=== PATIENT | female | born 1990 | race Caucasian/White ===

== ENCOUNTER 2018-10-10 08:00 | Outpatient (CLI) | payer MEDICAID, OTHER ==
[2018-10-10 18:47] LABS: BASOPHILS % (AUTO) 0.4 %; EOSINOPHILS # (AUTO) 0.1 10^3/uL (0.0-0.7); EOSINOPHILS % (AUTO) 2.4 %; HGB - HEMOGLOBIN 13.4 g/dL (12.0-16.0); LYMPHOCYTES # (AUTO) 1.2 10^3/uL (1.5-3.5); LYMPHOCYTES % (AUTO) 28.4 %; MEAN CORPUSCULAR HEMOGLOBIN 28.2 pg (27.0-31.0); MEAN CORPUSCULAR HGB CONC 33.3 g/dL (32.0-36.0); MEAN CORPUSCULAR VOLUME 84.6 fL (81.0-99.0); MEAN PLATELET VOLUME 9.8 fL (7.9-10.8); MONOCYTES # (AUTO) 0.3 10^3/uL (0.0-1.0); MONOCYTES % (AUTO) 6.8 %; NEUTROPHILS # (AUTO) 2.6 10^3/uL (1.5-6.6); PLT - PLATELET COUNT 240 10^3/uL (130-450); RED BLOOD COUNT 4.76 10^6/uL (4.20-5.40); RED CELL DISTRIBUTION WIDTH 13.2 % (12.0-15.0); WHITE BLOOD COUNT 4.2 x10^3/uL (4.8-10.8)
[2018-10-10 19:21] LABS: ALBUMIN/GLOBULIN RATIO 1.4 (1.0-2.2); BILIRUBIN,TOTAL 0.8 mg/dL (0.2-1.0); CALCIUM 9.4 mg/dL (8.5-10.3); CREATININE 0.6 mg/dL (0.4-1.0); TOTAL PROTEIN 6.9 g/dL (6.7-8.2)
[2018-10-10 19:25] LABS: CREATININE,URINE 80.7 mg/dL
[2018-10-10 19:28] LABS: THYROID STIMULATING HORMONE 1.75 uIU/mL (0.34-5.60)
[2018-10-10 19:39] LABS: FOLATE 5.65 ng/mL (5.90 - >24.8)
[2018-10-10 19:43] LABS: MICROALBUMIN,URINE < 0.3 mg/dL (0-300.0)
== END 2018-10-10 23:59 | disposition home or self-care (01) ==
LOC: LAB.N 08:00
PROVIDERS: ATTEND Internal Medicine Endocrinology, Diabetes & Metabolism
DX: E10.9 Type 1 diabetes mellitus without complications (principal); R03.0 Elevated blood-pressure reading, without diagnosis of hypertension; E55.9 Vitamin D deficiency, unspecified; R53.83 Other fatigue
CPT/HCPCS: 36415; 80053; 82043; 82306; 82570; 82607; 82746; 84443; 85025

== ENCOUNTER 2018-12-29 08:00 | Outpatient (CLI) | payer MEDICAID | END 2018-12-29 23:59 | disposition home or self-care (01) | LOC: LAB.N 08:00 | PROVIDERS: ATTEND Nurse Practitioner Gerontology | DX: O92.70 Unspecified disorders of lactation (principal) | CPT/HCPCS: 36415; 84146 ==

== ENCOUNTER 2019-08-17 13:37 | Outpatient (CLI) | payer MEDICAID ==
[2019-08-17 19:43] LABS: HCG,QUALITATIVE BLOOD NEGATIVE
== END 2019-08-17 23:59 | disposition home or self-care (01) ==
LOC: LAB.N 13:37
PROVIDERS: ATTEND Nurse Practitioner Gerontology
DX: N91.2 Amenorrhea, unspecified (principal)
CPT/HCPCS: 36415; 84703

== ENCOUNTER 2020-01-09 02:54 | Outpatient (CLI) | payer MEDICAID | END 2020-01-09 02:55 | disposition critical access hospital (66) | LOC: EMS 02:54 | PROVIDERS: ATTEND Surgery | DX: R56.9 Unspecified convulsions (principal); R73.09 Other abnormal glucose | CPT/HCPCS: A0425; A0427; A0999 ==

== ENCOUNTER 2020-01-09 03:11 | Emergency (ER) | payer MEDICAID ==
--- NOTE | 2020-01-09 03:04 | ED Physician Documentation ---
PD HPI SEIZURE - Stated complaint Stated Complaint: SIEZURE - History obtained from History obtained from: Patient (Patient is a 29-year-old female brought in by EMS after she was using marijuana tonight and then became irritable and started shaking her friends called 911. She is a type I diabetic her blood sugar was 220 on arrival. Remainder of history is unknown as the patient is not answering questions.) Review of Systems Unable to obtain: AMS PD PAST MEDICAL HISTORY - Present Medications Home Medications: Ambulatory Orders Medication Instructions Recorded Confirmed Multivitamin [Multivitamins] 1 cap DAILY 05/11/13 05/11/13 Insulin Lispro [Humalog] 10/30/15 - Allergies Allergies/Adverse Reactions: Allergies Allergy/AdvReac Type Severity Reaction Status Date / Time No Known Drug Allergies Allergy Verified 01/09/20 03:19 PD ED PE NORMAL - Vitals Vital signs reviewed: Yes - General General: No acute distress, Well developed/nourished, Other (patient shaking diffusely.) - HEENT HEENT: Atraumatic, PERRL, EOMI, Ears normal, Moist mucous membranes - Neck Neck: Supple, no meningeal sign, No JVD - Cardiac Cardiac: RRR, No murmur, Strong equal pulses - Respiratory Respiratory: No respiratory distress, Clear bilaterally - Abdomen Abdomen: Normal bowel sounds, Soft, Non tender, Non distended, No organomegaly - Back Back: No CVA TTP, No spinal TTP - Derm Derm: Normal color, Warm and dry, No rash - Extremities Extremities: No deformity, No tenderness to palpate, Normal ROM s pain, No edema - Neuro Neuro: No motor deficit, No sensory deficit - Psych Psych: Other (shaking at times, sleeping at other times, not answering questions.) Results - Vitals Vitals: Vital Signs - 24 hr 01/09/20 01/09/20 01/09/20 03:19 03:24 04:11 Temperature 36.8 C Heart Rate 133 H 133 H 128 H Respiratory 22 20 14 Rate Blood Pressure 162/109 H 161/109 H 158/67 H O2 Saturation 100 100 100 01/09/20 05:50 Temperature Heart Rate 101 H Respiratory 18 Rate Blood Pressure 131/78 H O2 Saturation 98 Oxygen O2 Source Room air - Labs Labs: Laboratory Tests 01/09/20 01/09/20 01/09/20 05:00 05:00 05:00 WBC 9.5 RBC 4.34 Hgb 13.0 Hct 37.8 MCV 87.1 MCH 30.0 MCHC 34.4 RDW 12.1 Plt Count 276 MPV 11.0 H Neut # (Auto) 8.2 H Lymph # (Auto) 0.8 L [place] # (Auto) 0.4 Eos # (Auto) 0.0 Baso # (Auto) 0.0 Absolute Nucleated RBC 0.00 Nucleated RBC % 0.0 Sodium 134 L Potassium 4.2 Chloride 98 L Carbon Dioxide 27 Anion Gap 9.0 BUN 9 Creatinine 0.7 Estimated GFR (MDRD) 100 Glucose 313 H Calcium 8.7 Total Bilirubin 0.4 AST 21 ALT 14 Alkaline Phosphatase 65 Total Creatine Kinase 42 Total Protein 6.8 Albumin 4.0 Globulin 2.8 Albumin/Globulin Ratio 1.4 Lipase 28 TSH 0.45 Urine Color Urine Clarity Urine pH Ur Specific [place] Urine Protein Urine Glucose (UA) Urine Ketones Urine Occult Blood Urine Nitrite Urine Bilirubin Urine Urobilinogen Ur Leukocyte Esterase Ur Microscopic Review Urine Culture Comments Urine HCG, Qual Salicylates < 6.0 Urine Opiates Screen Ur Oxycodone Screen Urine Methadone Screen Ur Propoxyphene Screen Acetaminophen < 10 L Ur Barbiturates Screen Ur Tricyclics Screen Ur Phencyclidine Scrn Ur Amphetamine Screen U Methamphetamines Scrn U Benzodiazepines Scrn Urine Cocaine Screen U Cannabinoids Screen Ethyl Alcohol < 5.0 01/09/20 05:44 WBC RBC Hgb Hct MCV MCH MCHC RDW Plt Count MPV Neut # (Auto) Lymph # (Auto) [place] # (Auto) Eos # (Auto) Baso # (Auto) Absolute Nucleated RBC Nucleated RBC % Sodium Potassium Chloride Carbon Dioxide Anion Gap BUN Creatinine Estimated GFR (MDRD) Glucose Calcium Total Bilirubin AST ALT Alkaline Phosphatase Total Creatine Kinase Total Protein Albumin Globulin Albumin/Globulin Ratio Lipase TSH Urine Color YELLOW Urine Clarity CLEAR Urine pH 6.5 Ur Specific [place] 1.010 Urine Protein NEGATIVE Urine Glucose (UA) >=1000 H Urine Ketones NEGATIVE Urine Occult Blood NEGATIVE Urine Nitrite NEGATIVE Urine Bilirubin NEGATIVE Urine Urobilinogen 0.2 (NORMAL) Ur Leukocyte Esterase NEGATIVE Ur Microscopic Review NOT INDICATED Urine Culture Comments NOT INDICATED Urine HCG, Qual NEGATIVE Salicylates Urine Opiates Screen NEGATIVE Ur Oxycodone Screen NEGATIVE Urine Methadone Screen NEGATIVE Ur Propoxyphene Screen NEGATIVE Acetaminophen Ur Barbiturates Screen NEGATIVE Ur Tricyclics Screen NEGATIVE Ur Phencyclidine Scrn NEGATIVE Ur Amphetamine Screen NEGATIVE U Methamphetamines Scrn NEGATIVE U Benzodiazepines Scrn NEGATIVE Urine Cocaine Screen NEGATIVE U Cannabinoids Screen POSITIVE H Ethyl Alcohol PD MEDICAL DECISION MAKING - ED course Complexity details: reviewed results, re-evaluated patient (06:15 awake, alert oriented, denies hi/si. asymptomatic, hr in the 90s. will dc home at this time.), considered differential (marijuana abuse), d/w patient, d/w family Departure - Departure Disposition: 01 Home, Self Care Clinical Impression: Marijuana abuse Condition: Stable Instructions: ED Marijuana Abuse Follow-Up: your, doctor [Other] - Tomorrow Comments: avoid marijuana use.
[2020-01-09] MEDS ORDERED: LORazepam 2 MG/ML VIAL IVP STA (03:28)
[2020-01-09] MEDS ORDERED: SODIUM CHLORIDE 0.9% 1,000 ML IV STA (03:31)
[2020-01-09 05:22] LABS: BASOPHILS % (AUTO) 0.4 %; EOSINOPHILS % (AUTO) 0.1 %; LYMPHOCYTES # (AUTO) 0.8 10^3/uL (1.5-3.5); MEAN CORPUSCULAR HGB CONC 34.4 g/dL (32.0-36.0); MEAN CORPUSCULAR VOLUME 87.1 fL (81.0-99.0); MONOCYTES # (AUTO) 0.4 10^3/uL (0.0-1.0); MONOCYTES % (AUTO) 4.6 %; NEUTROPHILS # (AUTO) 8.2 10^3/uL (1.5-6.6); NEUTROPHILS % (AUTO) 86.5 %; PLT - PLATELET COUNT 276 10^3/uL (130-450); RED BLOOD COUNT 4.34 10^6/uL (4.20-5.40); RED CELL DISTRIBUTION WIDTH 12.1 % (12.0-15.0); WHITE BLOOD COUNT 9.5 x10^3/uL (4.8-10.8)
[2020-01-09 05:32] LABS: ACETAMINOPHEN < 10 ug/mL (10-30); ALBUMIN/GLOBULIN RATIO 1.4 (1.0-2.2); ALKALINE PHOSPHATASE 65 IU/L (42-121); ALT ALANINE AMINOTRANSFERASE 14 IU/L (10-60); AST ASPARTATE AMINOTRANSFERASE 21 IU/L (10-42); BILIRUBIN,TOTAL 0.4 mg/dL (0.2-1.0); BUN - BLOOD UREA NITROGEN 9 mg/dL (6-20); CALCIUM 8.7 mg/dL (8.5-10.3); CARBON DIOXIDE - CO2 27 mmol/L (21-32); CHLORIDE 98 mmol/L (101-111); CK- CREATINE KINASE 42 IU/L (22-269); CREATININE 0.7 mg/dL (0.4-1.0); GLUCOSE 313 mg/dL (70-100); LIPASE 28 U/L (22-51); SALICYLATE < 6.0 mg/dL; SODIUM 134 mmol/L (135-145); TOTAL PROTEIN 6.8 g/dL (6.7-8.2)
[2020-01-09 05:52] VITALS: BP 131/78
[2020-01-09 06:00] LABS: MUDS CUTOFF CONCENTRATIONS CUTOFF CONC BELOW:
[2020-01-09 06:01] LABS: BILIRUBIN,URINE NEGATIVE (NEGATIVE); GLUCOSE, URINE (UA) >=1000 mg/dL (NEGATIVE); KETONES,URINE (UA) NEGATIVE (NEGATIVE); LEUKOCYTE ESTERASE, URINE NEGATIVE (NEGATIVE); NITRITE,URINE NEGATIVE (NEGATIVE); OCCULT BLOOD,URINE NEGATIVE (NEGATIVE); PH,URINE 6.5 PH (5.0-7.5); PROTEIN,URINE NEGATIVE (NEGATIVE); UROBILINOGEN,URINE 0.2 (NORMAL) E.U./dL (NORMAL)
[2020-01-09 06:05] LABS: CLARITY,URINE CLEAR (CLEAR); HCG UR QUAL NEGATIVE
[2020-01-09 06:11] LABS: AMPHETAMINE SCREEN,URINE NEGATIVE (NEGATIVE); BENZODIAZEPINES SCREEN, URINE NEGATIVE (NEGATIVE); COCAINE SCREEN URINE NEGATIVE (NEGATIVE); METHADONE SCREEN, URINE NEGATIVE (NEGATIVE); METHAMPHETAMINES SCREEN, URINE NEGATIVE (NEGATIVE); OPIATE SCREEN, URINE NEGATIVE (NEGATIVE); OXYCODONE SCREEN, URINE NEGATIVE (NEGATIVE); PROPOXYPHENE SCREEN, URINE NEGATIVE (NEGATIVE); TRICYCLIC ANTIDEPRESSANT,URINE NEGATIVE (NEGATIVE)
== END 2020-01-09 06:20 | disposition home or self-care (01) ==
LOC: EDUNIT# → ED 03:11
DX: F12.10 Cannabis abuse, uncomplicated (principal); E10.9 Type 1 diabetes mellitus without complications; Z79.4 Long term (current) use of insulin
CPT/HCPCS: 36415; 80053; 80306; 80307; 80320; 80329; 81003; 81025; 82550; 83690; 84443; 85025; 96361; 96374; 99281; 99283; J2060; 81001; 87086

== ENCOUNTER 2020-01-21 14:46 | Outpatient (CLI) | payer MEDICAID ==
[2020-01-21 18:29] LABS: CALCIUM 9.4 mg/dL (8.5-10.3); CREATININE 0.6 mg/dL (0.4-1.0)
[2020-01-21 18:52] LABS: HB2 TOTAL 14.1 g/dL; HEMOGLOBIN A1C 0.72 g/dL; HEMOGLOBIN A1C % 6.8 % (4.6-6.2)
[2020-01-21 19:02] LABS: MICROALBUMIN,URINE < 0.2 mg/dL (0-300.0)
== END 2020-01-21 23:59 | disposition home or self-care (01) ==
LOC: LAB.WCP 14:46
PROVIDERS: ATTEND Family Medicine
DX: E10.9 Type 1 diabetes mellitus without complications (principal)
CPT/HCPCS: 36415; 80048; 80053; 82043; 82570; 83036

== ENCOUNTER 2020-01-27 19:16 | Emergency (ER) | payer MEDICAID ==
--- NOTE | 2020-01-27 20:06 | ED Physician Documentation ---
PD HPI CHEST PAIN - Stated complaint Stated Complaint: CP/SOA - Chief complaint Chief Complaint: Cardiac - History obtained from History obtained from: Patient - History of Present Illness Timing - duration: Other (unable to describe the episodes in terms of duration) Timing - details: Abrupt onset, Intermittant Quality: Pain Location: Substernal Radiation: Other (does not radiate) Improved by: Nothing Worsened by: Other (no apparent inciting nor exacerbating factors) Associated symptoms: Shortness of air, Feeling faint / dizzy, Palpitations. No: Diaphoresis, Nausea, Vomiting, General Weakness Recently seen: Not recently seen - Additional information Additional information: c/o episodic palpitations (rapid and irregular) since this morning. these episo ton are associated with chest pain, dizziness, and shortness of breath. She is asymptomatic between episodes. The episodes have been becoming more frequent and prolonged during the day and evening. Review of Systems Constitutional: reports: Reviewed and negative Cardiac: reports: Chest pain / pressure, Palpitations. denies: Pedal edema, Calf pain Respiratory: reports: Dyspnea. denies: Cough GI: reports: Reviewed and negative : denies: Now EGA Musculoskeletal: denies: Extremity swelling PD PAST MEDICAL HISTORY - Past Medical History Past Medical History: Yes Endocrine/Autoimmune: Type 1 diabetes Psych: Depression, Anxiety Other Past Medical History: Dissociative Disorder - Past Surgical History Past Surgical History: No - Present Medications Home Medications: Ambulatory Orders Medication Instructions Recorded Confirmed Multivitamin [Multivitamins] 1 cap DAILY 05/11/13 05/11/13 Insulin Lispro [Humalog] SQ 10/30/15 ALPRAZolam [Alprazolam] 0.5 mg PO BID PRN #20 tablet 01/27/20 Escitalopram Oxalate [Lexapro] 20 mg PO DAILY 01/27/20 01/27/20 Insulin Glargine [Lantus Solostar] 18 units SQ QPM 01/27/20 01/27/20 Prazosin HCl 1 mg PO QPM 01/27/20 01/27/20 Trazodone HCl 50 mg PO QPM 01/27/20 01/27/20 - Allergies Allergies/Adverse Reactions: Allergies Allergy/AdvReac Type Severity Reaction Status Date / Time No Known Drug Allergies Allergy Verified 01/27/20 19:49 - Social History Does the pt smoke?: No Smoking Status: Never smoker Does the pt drink ETOH?: No Does the pt have substance abuse?: Yes - Immunizations Immunizations are current?: Yes - POLST Patient has POLST: No PD ED PE NORMAL - Vitals Vital signs reviewed: Yes - General General: Alert and oriented X 3, No acute distress, Well developed/nourished - Cardiac Cardiac: RRR, No murmur, No gallop, No rub - Respiratory Respiratory: No respiratory distress, Clear bilaterally - Abdomen Abdomen: Soft, Non tender - Derm Derm: Normal color, Warm and dry - Extremities Extremities: No edema Results - Vitals Vitals: Vital Signs - 24 hr 01/27/20 01/27/20 01/27/20 19:20 19:56 21:05 Temperature 36.7 C Heart Rate 102 H 84 81 Respiratory 26 H 16 15 Rate Blood Pressure 146/84 H 131/78 H 131/73 H O2 Saturation 100 100 97 01/27/20 01/27/20 22:18 23:00 Temperature 37.0 C Heart Rate 81 78 Respiratory 15 14 Rate Blood Pressure 140/77 H 146/85 H O2 Saturation 99 98 Oxygen O2 Source Room air - EKG (time done) No standard instances Rate: Rate (enter#) (79) Rhythm: NSR [place]: Normal Intervals: Normal [place] QRS: Normal Ischemia: Normal ST segments - Labs Labs: Laboratory Tests 01/27/20 01/27/20 01/27/20 19:35 20:59 20:59 WBC 6.6 RBC 4.88 Hgb 14.4 Hct 43.7 MCV 89.5 MCH 29.5 MCHC 33.0 RDW 12.6 Plt Count 255 MPV 12.2 H Neut # (Auto) 3.9 Lymph # (Auto) 2.1 [place] # (Auto) 0.4 Eos # (Auto) 0.1 Baso # (Auto) 0.0 Absolute Nucleated RBC 0.00 Nucleated RBC % 0.0 D-Dimer < 200.0 L Sodium 138 Potassium 3.6 Chloride 100 L Carbon Dioxide 27 Anion Gap 11.0 BUN 10 Creatinine 1.0 Estimated GFR (MDRD) 67 L Glucose 282 H Calcium 9.0 - Rads (name of study) chest xray Radiology: Prelim report reviewed, See rad report PD MEDICAL DECISION MAKING - ED course Complexity details: reviewed results, re-evaluated patient, considered differential, d/w patient Departure - Departure Disposition: Home, Self Care Clinical Impression: Palpitations Condition: Good Instructions: ED Chest Pain Atypical Unkn Cause, ED Palpitations Prescriptions: ALPRAZolam [Alprazolam] 0.5 mg PO BID PRN #20 tablet PRN Reason: Anxiety Discharge Date/Time: 01/27/20 23:05
[2020-01-27 20:52] LABS: BASOPHILS % (AUTO) 0.6 %; EOSINOPHILS # (AUTO) 0.1 10^3/uL (0.0-0.7); EOSINOPHILS % (AUTO) 1.7 %; HGB - HEMOGLOBIN 14.4 g/dL (12.0-16.0); LYMPHOCYTES # (AUTO) 2.1 10^3/uL (1.5-3.5); LYMPHOCYTES % (AUTO) 31.3 %; MEAN CORPUSCULAR HEMOGLOBIN 29.5 pg (27.0-31.0); MEAN CORPUSCULAR VOLUME 89.5 fL (81.0-99.0); MEAN PLATELET VOLUME 12.2 fL (7.9-10.8); MONOCYTES # (AUTO) 0.4 10^3/uL (0.0-1.0); MONOCYTES % (AUTO) 6.5 %; NEUTROPHILS # (AUTO) 3.9 10^3/uL (1.5-6.6); NEUTROPHILS % (AUTO) 59.4 %; PLT - PLATELET COUNT 255 10^3/uL (130-450); RED BLOOD COUNT 4.88 10^6/uL (4.20-5.40); RED CELL DISTRIBUTION WIDTH 12.6 % (12.0-15.0); WHITE BLOOD COUNT 6.6 x10^3/uL (4.8-10.8)
--- NOTE | 2020-01-27 21:07 | XRAY Report ---
PROCEDURE: Chest 2 View X-Ray INDICATIONS: chest pain, dyspnea TECHNIQUE: 2 view(s) of the chest. COMPARISON: None. FINDINGS: Surgical changes and devices: None. Lungs and pleura: No pleural effusions or pneumothorax. Lungs are clear. Mediastinum: Mediastinal contours are normal. Heart size is normal. Bones and chest wall: No suspicious bony abnormalities. Soft tissues appear unremarkable. IMPRESSION: No acute cardiopulmonary disease. Reviewed by: Dai Pepe MD on 01/27/2020 9:06 PM PDT Approved by: Dai Pepe MD on 01/27/2020 9:06 PM PDT Station ID: [id number]
[2020-01-27 23:05] VITALS: BP 146/85
== END 2020-01-27 23:05 | disposition home or self-care (01) ==
LOC: ED 19:16
DX: R00.2 Palpitations (principal); R06.00 Dyspnea, unspecified; E10.9 Type 1 diabetes mellitus without complications; Z79.4 Long term (current) use of insulin
CPT/HCPCS: 36415; 71046; 80048; 85025; 85379; 93005; 99284

== ENCOUNTER 2021-03-01 12:18 | Outpatient (CLI) | payer MEDICAID ==
[2021-03-01 12:52] LABS: MUDS CUTOFF CONCENTRATIONS CUTOFF CONC BELOW:
[2021-03-01 13:04] LABS: AMPHETAMINE SCREEN,URINE NEGATIVE (NEGATIVE); BARBITURATE SCREEN,UR NEGATIVE (NEGATIVE); BENZODIAZEPINES SCREEN, URINE POSITIVE (NEGATIVE); COCAINE SCREEN URINE NEGATIVE (NEGATIVE); METHADONE SCREEN, URINE NEGATIVE (NEGATIVE); METHAMPHETAMINES SCREEN, URINE NEGATIVE (NEGATIVE); OPIATE SCREEN, URINE NEGATIVE (NEGATIVE); OXYCODONE SCREEN, URINE NEGATIVE (NEGATIVE); PROPOXYPHENE SCREEN, URINE NEGATIVE (NEGATIVE); THC CANNABINOID SCREEN, URINE NEGATIVE (NEGATIVE); TRICYCLIC ANTIDEPRESSANT,URINE NEGATIVE (NEGATIVE)
== END 2021-03-01 12:19 | disposition home or self-care (01) ==
LOC: RT 12:18
PROVIDERS: ATTEND Psychiatry & Neurology Psychiatry
DX: Z79.899 Other long term (current) drug therapy (principal)
CPT/HCPCS: 80306; 93005

== ENCOUNTER 2021-04-23 08:00 | Outpatient (CLI) | payer MEDICAID ==
[2021-04-23 21:16] LABS: BACTERIAL VAGINOSIS DNA NEGATIVE (NEGATIVE); CANDIDA GLABRATA DNA NEGATIVE (NEGATIVE); CANDIDA GROUP DNA POSITIVE (NEGATIVE); CANDIDA KRUSEI DNA NEGATIVE (NEGATIVE); TRICHOMONAS VAGINALIS DNA NEGATIVE (NEGATIVE)
[2021-04-23 22:02] LABS: CHLAMYDIA TRACHOMATIS DNA NEGATIVE (NEGATIVE); NEISSERIA GONORRHOEAE DNA NEGATIVE (NEGATIVE); TRICHOMONAS VAGINALIS DNA NEGATIVE (NEGATIVE)
== END 2021-04-23 23:59 | disposition home or self-care (01) ==
LOC: LAB 08:00
PROVIDERS: ATTEND Family Medicine
DX: R30.0 Dysuria (principal)
CPT/HCPCS: 87086; 87181; 87491; 87591; 87661; 87801

== ENCOUNTER 2021-05-04 13:45 | Outpatient (CLI) | payer MEDICAID | END 2021-05-04 23:59 | disposition home or self-care (01) | LOC: LAB.N 13:45 | PROVIDERS: ATTEND Family Medicine | DX: R10.9 Unspecified abdominal pain (principal) | CPT/HCPCS: 87077; 87086; 87181 ==

== ENCOUNTER 2021-05-04 15:23 | Emergency (ER) | payer MEDICAID ==
[2021-05-04 15:33] VITALS: BP 143/86
--- NOTE | 2021-05-04 15:45 | ED Physician Documentation ---
PD HPI ABD PAIN - Stated complaint Stated Complaint: BACK/ABD PX; NAUSEA - Chief complaint Chief Complaint: Abd Pain - History obtained from History obtained from: Patient - History of Present Illness Timing - onset: Yesterday Timing - duration: Days (2) Timing - details: Gradual onset, Still present Quality: Pain. No: Cramping, Aching Location: RLQ, Suprapubic Radiation: Right flank Associated symptoms: Nausea, Dysuria, Hematuria. No: Fever, Vomiting Similar symptoms before: Diagnosis Recently seen: Clinic (seen at walk in last week with same and Rx with Macrobid. Symptoms improved but back now off abx for several days.) Review of Systems Constitutional: denies: Fever, Chills Nose: denies: Rhinorrhea / runny nose, Congestion Throat: denies: Sore throat Respiratory: denies: Cough GI: denies: Abdominal Pain, Nausea, Vomiting, Diarrhea : reports: Dysuria, Frequency. denies: Discharge, Irregular menses Skin: denies: Rash PD PAST MEDICAL HISTORY - Past Medical History Endocrine/Autoimmune: Type 1 diabetes Psych: Depression, Anxiety - Past Surgical History Past Surgical History: No - Present Medications Home Medications: Ambulatory Orders Medication Instructions Recorded Confirmed Multivitamin [Multivitamins] 1 cap DAILY 05/11/13 05/11/13 Insulin Lispro [Humalog] SQ 10/30/15 ALPRAZolam [Alprazolam] 0.5 mg PO BID PRN #20 tablet 01/27/20 Insulin Glargine [Lantus Solostar] 18 units SQ QPM 01/27/20 01/27/20 Trazodone HCl 25 mg PO QPM 01/27/20 01/27/20 DULoxetine [Cymbalta] 20 mg BID 05/04/21 05/04/21 Dextroamphetamine/Amphetamine 10 mg DAILY 05/04/21 05/04/21 [Dextroamp-Amphetamine 5 mg Tab] Fluconazole [Diflucan] 150 mg PO Q3D #2 tablet 05/04/21 Ibuprofen [Motrin] 600 mg PO TID PRN #20 tab 05/04/21 cephALEXin [Keflex] 500 mg PO TID 7 Days #20 cap 05/04/21 - Allergies Allergies/Adverse Reactions: Allergies Allergy/AdvReac Type Severity Reaction Status Date / Time No Known Drug Allergies Allergy Verified 05/04/21 15:34 - Social History Does the pt smoke?: No Smoking Status: Never smoker Does the pt drink ETOH?: No Does the pt have substance abuse?: Yes - Immunizations Immunizations are current?: Yes - POLST Patient has POLST: No PD ED PE NORMAL - Vitals Vital signs reviewed: Yes - General General: Alert and oriented X 3, No acute distress, Well developed/nourished - Cardiac Cardiac: RRR, No murmur - Respiratory Respiratory: Clear bilaterally - Abdomen Abdomen: Normal bowel sounds, Soft, Non tender, Non distended - Female Female : Deferred - Back Back: Other (some right CVA tender. ) - Derm Derm: Normal color - Neuro Neuro: Alert and oriented X 3, No motor deficit, Normal speech Results - Vitals Vitals: Oxygen O2 Source Room air - Labs Labs: Microbiology 05/04/21 15:35 Urine Culture - Preliminary Urine,Random Escherichia Coli Laboratory Tests 05/04/21 15:35 Urine Color YELLOW Urine Clarity CLEAR Urine pH 7.0 Ur Specific [place] 1.010 Urine Protein TRACE Urine Glucose (UA) NEGATIVE Urine Ketones NEGATIVE Urine Occult Blood SMALL H Urine Nitrite NEGATIVE Urine Bilirubin NEGATIVE Urine Urobilinogen 0.2 (NORMAL) Ur Leukocyte Esterase TRACE H Urine RBC 0-5 Urine WBC >25 H Ur Squamous Epith Cells FEW Squamous Urine Bacteria Few Ur Microscopic Review INDICATED Urine Culture Comments INDICATED Urine HCG, Qual NEGATIVE - Rads (name of study) KUB CT Radiology: Prelim report reviewed (no kidney stones nor hydronephrosis. Aappendix not seen but no secondary signs of local inflammation.), See rad report PD MEDICAL DECISION MAKING - ED course Complexity details: reviewed results (symptoms suggestive of uTI and UA goes along with that. ), considered differential (seems recurring UTI after macrobid failure. right abd/flank pain so consider stone instead. Can get CT to eval for that as well as appendix 9lower clinical suspicion by exam). ), d/w patient Departure - Departure Disposition: 01 Home, Self Care Clinical Impression: Dysuria UTI (urinary tract infection) Qualifiers: Urinary tract infection type: acute cystitis Hematuria presence: with hematuria Qualified Code(s): N30.01 - Acute cystitis with hematuria Condition: Stable Record reviewed to determine appropriate education?: Yes Instructions: ED UTI Cystitis Female Follow-Up: Luisana Valverde PA-C [Primary Care Provider] - Prescriptions: Fluconazole [Diflucan] 150 mg PO Q3D #2 tablet cephALEXin [Keflex] 500 mg PO TID 7 Days #20 cap Ibuprofen [Motrin] 600 mg PO TID PRN #20 tab PRN Reason: Pain Comments: Stay well-hydrated. Your CT does not show any signs of stones or other acute abnormalities. Incidentally there was of small 1.3 cm left ovarian cyst which is very common incidental finding and should not be contributing to your current symptoms. You do have signs of a bladder infection still. We will try a different antibiotic with cephalexin as prescribed. I would also suggest using an anti- inflammatory ibuprofen over the next 5 days as well to help with symptoms. Recheck if not improved well over the next few days and return if worse. I transmitted your prescriptions to [facility]. Discharge Date/Time: 05/04/21 17:27
[2021-05-04 15:53] LABS: BILIRUBIN,URINE NEGATIVE (NEGATIVE); GLUCOSE, URINE (UA) NEGATIVE (NEGATIVE); KETONES,URINE (UA) NEGATIVE (NEGATIVE); LEUKOCYTE ESTERASE, URINE TRACE (NEGATIVE); NITRITE,URINE NEGATIVE (NEGATIVE); OCCULT BLOOD,URINE SMALL (NEGATIVE); PROTEIN,URINE TRACE mg/dL (NEGATIVE); UROBILINOGEN,URINE 0.2 (NORMAL) E.U./dL (NORMAL)
[2021-05-04 15:58] LABS: CLARITY,URINE CLEAR (CLEAR); HCG UR QUAL NEGATIVE
[2021-05-04 16:23] LABS: RBC,URINE 0-5 /HPF (0-5); WBC,URINE >25 /HPF (0-5)
[2021-05-04 16:24] LABS: BACTERIA,URINE Few /HPF (None Seen); SQUAMOUS EPITHELIAL CELL,UR FEW Squamous (<= Few)
--- NOTE | 2021-05-04 16:54 | CT Report ---
PROCEDURE: Abdomen/Pelvis WO INDICATIONS: right abd/flank pain TECHNIQUE: Noncontrast 5 mm thick sections acquired from the diaphragms to the symphysis. 5 mm coronal and sagi ttal reformats were then performed. For radiation dose reduction, the following was used: automated exposure control, adjustment of mA and/or kV according to patient size. COMPARISON: None. FINDINGS: Image quality: Excellent. ABDOMEN: Lung bases: Lung bases are clear. Heart size is normal. Solid organs: Liver is mildly enlarged with steatosis. The spleen is normal in size. Gallbladder is contracted, grossly normal. Pancreas is normal in contours. No adrenal nodules. Kidneys are pako l in size, without hydronephrosis or nephrolithiasis. Peritoneum and bowel: Unenhanced bowel loops demonstrate normal wall thickness and caliber. No free fluid or air. Scattered stool is present without obstruction. The appendix is not definitively iden tified. No right lower quadrant toward change. Nodes and vessels: No retroperitoneal or mesenteric adenopathy by size criteria. Aorta and inferior vena cava are normal in caliber. Miscellaneous: No ventral hernias. PELVIS: Genitourinary: Bladder wall thickness is normal. Miscellaneous: No inguinal hernias or adenopathy. Bones: No suspicious bony lesions. No vertebral body compression fractures. IMPRESSION: 1. Appendix is not visualized. However right lower quadrant is within normal limits. 2. 1.3 cm left ovarian cyst. 3. Mild constipation. Reviewed by: Ghazal Proctor MD on 05/04/2021 4:53 PM PDT Approved by: Ghazal Proctor MD on 05/04/2021 4:53 PM PDT Station ID: [id number]
[2021-05-04] MEDS ORDERED: IBUPROFEN 600 MG TABLET PO STA (17:10)
[2021-05-04] MEDS ORDERED: cephALEXin 250 MG CAPSULE PO STA (17:10)
== END 2021-05-04 17:27 | disposition home or self-care (01) ==
LOC: ED 15:23
DX: N30.01 Acute cystitis with hematuria (principal); N83.202 Unspecified ovarian cyst, left side; E10.9 Type 1 diabetes mellitus without complications; Z79.4 Long term (current) use of insulin
CPT/HCPCS: 74176; 81001; 81025; 87086; 87181; 99283; 99284; A9270; 81003

== ENCOUNTER 2021-10-20 10:59 | Outpatient (CLI) | payer MEDICARE, MEDICAID ==
[2021-10-20 18:39] LABS: ALBUMIN 3.8 g/dL (3.2-5.5); ALBUMIN/GLOBULIN RATIO 1.1 (1.0-2.2); ALKALINE PHOSPHATASE 51 IU/L (42-121); ALT ALANINE AMINOTRANSFERASE 16 IU/L (10-60); AST ASPARTATE AMINOTRANSFERASE 18 IU/L (10-42); BILIRUBIN,TOTAL 0.7 mg/dL (0.2-1.0); BUN - BLOOD UREA NITROGEN 8 mg/dL (6-20); CALCIUM 9.4 mg/dL (8.5-10.3); CARBON DIOXIDE - CO2 28 mmol/L (21-32); CHLORIDE 97 mmol/L (101-111); CHOL/HDL RATIO 2.6 (<4.4); CHOLESTEROL 259 mg/dL; CREATININE 0.8 mg/dL (0.4-1.0); GFR - MDRD 85 (>89); GLUCOSE 229 mg/dL (70-100); HDL CHOLESTEROL 99 mg/dL; LDL CHOLESTEROL,CALCULATED 129 mg/dL; LDL/HDL RATIO 1.3 (<4.4); POTASSIUM 4.3 mmol/L (3.5-5.0); SODIUM 134 mmol/L (135-145); TOTAL PROTEIN 7.3 g/dL (6.7-8.2); TRIGLYCERIDES 156 mg/dL; VLDL CHOLESTEROL 31 mg/dL
[2021-10-20 18:48] LABS: THYROID STIMULATING HORMONE 1.85 uIU/mL (0.34-5.60)
[2021-10-20 20:27] LABS: ESTIMATED AVERAGE GLUCOSE 160 mg/dL (70-100); HEMOGLOBIN A1c% 7.2 % (4.27-6.07)
== END 2021-10-20 11:00 | disposition home or self-care (01) ==
LOC: LAB.N 10:59
PROVIDERS: ATTEND Physician Assistant Medical
DX: E10.9 Type 1 diabetes mellitus without complications (principal)
CPT/HCPCS: 36415; 80053; 80061; 83036; 83721; 84443

== ENCOUNTER 2021-11-01 16:23 | Outpatient (CLI) | payer MEDICARE, MEDICAID ==
[2021-11-03 09:16] LABS: HEPATITIS C ANTIBODY NON-REACTIVE (NON-REACTIVE)
== END 2021-11-01 16:24 | disposition home or self-care (01) ==
LOC: LAB.N 16:23
PROVIDERS: ATTEND Physician Assistant Medical
DX: Z30.09 Encounter for other general counseling and advice on contraception (principal)
CPT/HCPCS: 86803